=== PATIENT | female | born 1975 | race Caucasian/White ===

== ENCOUNTER 2024-12-22 10:00 | Outpatient (CLI) | payer BC, SELFPAY ==
--- OUTSIDE RECORDS SUMMARY | 2024-12-03 16:30 | XMS_ITS | Encounter Summary ---
Author Organization [facility] Address [address] [place], [place] [id number] Phone [email or web address] [email or web address] Care Team Providers Care Food Assembler Commissary Kitchen Name Role Phone Unavailable Primary Care Provider Unavailabl e Reason for Visit * Reason Comments Eye Exam Encounter Details Date Type Department Care Team (Late st Contact Info) Description 12/03/2024 4:30 PM EDT Office Visit [facility] [address] [place] [address] Vinny Ag, OD [address] [place] [address] Severe myopia of both eyes [...] evaluation with 20D <div id= MAIN_EXAM_REVIEWED ></div> Meryc was seen today for eye exam. Diagnoses and all orders for this visit: Severe myopia of both eyes (Primary) - DFE shows no signs of tears, holes, lattice, or RD OU - recommend annual eye exams to monitor retina - RTC for CL FU in 1-2 weeks Vinny Ag, KEILA documented in this encounter Plan of Treatment Upcoming Encounters Date Type Department Care Team (Late st Contact Info) Description 12/28/2024 10:00 AM EDT Occ Office Visit [facility] [address] [place] [address] Vinny Ag, OD [address] [place] [address] documented as of this encounter Visit Diagnoses Diagnosis Severe myopia of both eyes- Primary Myopia documented in this encounter
[2024-12-22 13:59] LABS: Alanine Aminotransferase 29 U/L (12-78); Albumin Level 4.6 g/dl (3.5-5.0); Albumin/Globulin Ratio 1.6 (1.1-1.8); Alkaline Phosphatase 85 U/L (38-126); Anion Gap 13.4 mEq/L (5-15); Aspartate Amino Transferase 29 U/L (14-36); Bilirubin,Total 0.8 mg/dl (0.2-1.3); Blood Urea Nitrogen 15 mg/dl (7-17); Calcium 10.1 mg/dl (8.4-10.2); Carbon Dioxide 28 mmol/L (22.0-30.0); Chloride 103 mmol/L (98-107); Cholesterol 167 mg/dl (140-200); Creatinine,Serum 0.80 mg/dl (0.52-1.04); Estimated Glomerular Filt Rate 76 ml/min (>60); GFR (African American) 92 ML/MIN (>60); Globulin 2.9 g/dL (1.3-3.2); Glucose 81 mg/dl (74-100); HDL Cholesterol 60 mg/dl (40-60); Potassium 4.4 mmoL/L (3.5-5.1); Sodium 140 mmol/L (136-145); Total Protein,Serum 7.5 g/dl (6.3-8.2); Triglycerides 100 mg/dl (30-150); Uric Acid 5.2 mg/dl (2.5-6.2)
[2024-12-22 14:10] LABS: Hemoglobin A1C 5.0 % (4.0-6.0)
[2024-12-22 14:15] LABS: 25-OH Vitamin D, Total 50.3 ng/mL (30-100)
[2024-12-22 14:19] LABS: Free T4 (Free Thyroxine) 1.03 ng/dl (0.78-2.19)
[2024-12-22 14:30] LABS: Thyroid Stimulating Hormone 4.83 uIU/mL (0.465-4.68)
[2024-12-23 08:13] LABS: FSH 53.8 mIU/mL (.); Insulin Level Total 10.4 uIU/mL (2.6-24.9); LH 29.2 mIU/mL (.); RA Latex Turbid. <10.0 IU/mL (<14.0); Triiodothyronine (T3) Free 3.6 pg/mL (2.0-4.4)
--- OUTSIDE RECORDS SUMMARY | 2024-12-23 11:51 | XMS_ITS | Clinical Summary ---
Author Organization [facility] Address [address] [place] [address] Phone CareEverywhereSuppor [email or web address] Care Team Providers Care Building Construction Superintendent Name Role Phone Unavailable Primary Care Provider Unavailabl e Medications No known medications Active Problems Problem Noted Date Diagnosed Date Other chronic allergic conjunctivitis Overview (10/30/2017): Routine general medical exam ination at a health care facility Overview (10/30/2017): Urinary frequency Overview (10/30/2017): Dermatophytosis Overview (10/30/2017): Allergic rhinitis due to other allergen Overview (10/30/2017): Encounters Date Type Department Care Team Description 12/03/2024 4:30 PM EDT Office Visit [facility] [address] [place] [address] Vinny Ag, OD Severe myopia of both eyes (Primary Dx) from Last 3 Months Immunizations Immunization Administration Dates Next Due COVID-19 (Pfizer [place] 12 yrs+) (CVX-208) 021,09/17/2020 Influenza, unspecified (CVX-88) 04/04/2012,04/15 Tdap (ADACEL BOOSTRIX) (CVX-115) 06/29/2013 Social History Tobacco Use Types Packs/Day Years [...] on file Sexual Orientation Not on file Last Filed Vital Signs Vital Sign Reading Time Taken Comments Blood Pressure 131/79 06/25/2016 9:11 AM MEMBERSHIP COUNSELOR Pulse 98 06/25/2016 9:11 AM MEMBERSHIP COUNSELOR Temperature - - Respiratory Rate - - Oxygen Saturation - - Inhaled Oxygen Concentration - - Weight 89.9 kg (198 lb 1.9 oz) 06/25/2016 9:11 A M MEMBERSHIP COUNSELOR Height 175.3 cm (5' 9 ) 06/25/2016 9:11 AM MEMBERSHIP COUNSELOR Body Mass Index 29.26 06/25/2016 9:11 AM MEMBERSHIP COUNSELOR Plan of Treatment Upcoming Encounters Date Type Department Care Team (Late st Contact Info) Description 12/28/2024 10:00 AM EDT Occ Office Visit [facility] [address] [place] [address] Vinny Ag, OD [address] [place] [address] Health Maintenance Due Date Last Done Comments Dental Cleaning/Exam 1975 HIV Screening 1975 Hepatitis C Screening 1975 Cervical Cancer Screening 1991 Annual Preventive Exam 10/10/1993 Hep B Infection Screening - Triple Screen 10/10/1993 Hepatitis B Immunization (1 of 3 - 19+ 3-dose series) 10/10/1994 Breast Cancer Screening 10/10/2005 Colorectal Cancer Screening 10/10/2005 Tetanus Diphtheria and Pertussis Immunization (3 - Td or Tdap) 06/29/2023 06/29/2013, 06/13/2013 Covid-19 Immunization ( - season) 2024 10/12/2020, 09/17/2020 Influenza Immunization (#1) 2025 10/0 01/2024, 03/15/2016, 03/24/2014, Additional history exists HIB Immunization Aged Out No longer e ligible based on patient's age to complete this topic HPV Immunization Aged Out No longer e ligible based on patient's age to complete this topic Hepatitis A Immunization Aged Out No longer eligible based on patient's age to complete this topic Pneumococcal: Ped (0 to 5 Yrs) and At-Risk Member (6 to 64 Yrs) Aged Out No longer eligible based on patient's age to complete this topic Polio Immunization Aged Out No longer eligible based on patient's age to complete this topic
--- OUTSIDE RECORDS SUMMARY | 2024-12-23 11:51 | XMS_ITS | Clinical Summary ---
Author Organization [facility] Address [facility] [place] [address] Phone Care Team Providers Care Marketing Financial Analyst Name Role Phone Unavailable Primary Care Provider Unavailabl e Allergies Active Allergy Reactions Criticality Noted Date Comments Adhesive Hives,Itching,Rash Medium 04/25/2011 Band aid only Bacitracin Zinc-Polymyxin B Itching Medium 06/09/2024 Levofloxacin Swelling 01/28/2023 Naproxen Hives,Nausea Only Medium 06/28/2020 Sulfa (Sulfonamide Antibiotics) Hives Medium 03/24/2018 Sulfamethoxazole-Trimeth oprim Hives Medium 08/16/2009 05/30/2017 - 04/22/2017 - 04/02/2016 - 09/26/2015 - 01/25/2015 - 09/29/2014 - 09/20/2014 - Medications beclomethasone dipropionate 40 mcg/actuation Nasl HFA Aerosol Inhaler Active MONTELUKAST SODIUM (SINGULAIR ORAL) Act ho norgestimate-eth inyl estradiol (ORTHO-CYCLEN) 0.25-35 mg-mcg Oral Tablet Take 1 Tablet by mouth daily. Active naproxen (NAPROSYN) 500 mg Oral TabletIndication s:TMJ arthritis Take 1 Tab by mouth 2 times daily (with meals). 60 Tab 2 7 Active atorvastatin (LIPITOR) 10 mg Oral Tablet 03/24/2018 Atorvastatin Oral PO 1.0 TABLET(S) daily 03/24/2018 active 8 Active cholecalciferol, vitamin D3, 25 mcg (1,000 unit) Oral Tablet Take 5,000 Units by mouth daily. Active Saccharomyces boulardii (FLORASTOR) 250 mg Oral Capsule Take 1 Capsule by mouth 2 times daily. 40 Capsule 5 Active Brompheniramine- Pseudoeph-DM 2-30-10 mg/5 mL Oral Syrup Take 5 mL by mouth every 4 hours as needed. 150 mL 5 Active predniSONE (DELTASONE) 20 mg Oral Tablet Take two tabs in AM with food x 3 days 6 Tablet 5 Active albuterol (PROVENTIL HFA;VENTOLIN HFA) 90 mcg/actuation Inhl HFA Aerosol Inhaler Inhale 2 Puffs into the lungs every 4 hours as needed. 1 Each 5 Active Active Problems Problem Noted Date Diagnosed Date Mixed hyperlipidemia 08/03/2016 Overweight (BMI 25.0-29.9) 08/03/2016 Iron deficiency anemia due to chronic blood loss 08/03/2016 TMJ arthritis 08/03/2016 Allergic rhinitis 08/11/2013 Seasonal allergies 08/11/2013 Vitamin D deficiency 08/11/2013 GERD (gastroesophageal reflux disease) 0 Resolved Problems Problem Noted Date Diagnosed Date Resolved Date Left ankle pain 12/17/2011 08/03/2016 Biliary colic 04/24/2011 08/11/2013 Calculous cholecystitis 05/05/201008/01 Palpitations 08/16/2009 08/11/2013 Immunizations Immunization Administration Dates Next Due DTaP 06/13/2013 H1N1, Unspecified Formulation 06/17/2009 Influenza Vaccine, Unspecified Formulation 03/15,03/24/2014,04/13/2013 Surgical History Surgery Date Site/Laterality Comments PELVIC LAPAROSCOPY 12/01/2009 D & C at same time BREAST BIOPSY 06/03/2006 left - benign ABCESS DRAINAGE 2000, 2002 rectal. CHOLECYSTECTOMY, LAPAROSCOPIC 05/22/2011 N/A LAPAROSCOPIC CHOLECYSTECTOMY; Surgeon: Blayne Mills MD; Location: [facility] MAIN OR; Service: General PARTIAL HYSTERECTOMY 06/03/2017 - 06/02/2018 Medical History Medical History Date Comments Seasonal allergies GERD (gastroesophageal reflux disease) Allergic rhinitis (spontaneous vaginal delivery) 1999 Vitamin D deficiency Family History Medical History Relation Name Comments High Cholesterol Father Hypertension Father Cancer Maternal Grandfather bladder Hypertension Mother Diabetes Paternal Aunt Cancer Paternal Grandfather pancrea tic Diabetes Paternal Grandmother Cancer Paternal Uncle 1 renal Cancer Paternal Uncle 2 brain, lymp akua Relation Name Status Comments Father Maternal Grandfather Mother Paternal Aunt Paternal Grandfather Paternal Grandmother Paternal Uncle 1 Paternal Uncle 2 Social History Tobacco Use Types Packs/Day Years Used Date Smoking Tobacco: Never Smokeless Tobacco: Never Tobacco Cessation:Counseling Given: Not Answered Alcohol Use Standard Drinks/Week Comments No 0 (1 standard drink = 0.6 oz pur e alcohol) Sexually Active Control Partners Comments Yes Male Comments No Sex and Gender Information Value Date Recorded Sex Assigned at Not on file Legal Sex Female 9:35 AM EDT Gender Identity Not on file Sexual Orientation Not on file Obstetrics History Last Filed Vital Signs Vital Sign Reading Time Taken Comments Blood Pressure 122/66 06/14/2024 2:59 PM EST Pulse 89 06/14/2024 2:59 PM EST Temperature 36.7 C (98.1 F) 06/14/2024 2:59 PM EST Respiratory Rate 18 06/14/2024 2:59 PM EST Oxygen Saturation 97% 06/14/2024 2:59 PM EST Inhaled Oxygen Concentration - - Weight 109.1 kg (240 lb 9.6 oz) 06/14/2024 2:59 PM EST Height 175.3 cm (5' 9 ) 06/14/2024 2:59 PM EST Body Mass Index 35.53 06/14/2024 2:59 PM EST Plan of Treatment Upcoming Encounters Date Type Department Care Team (Late st Contact Info) Description 04/16/2025 1:30 PM EST [facility] [address] [place] [address] Ya Parker, [facility] [address] [place] [address] Health Maintenance Due Date Last Done Comments Annual Wellness Exam 10/10/1978 Hepatitis B Vaccine (1 of 3 - 19+ 3-dose series) 10/10/1994 HPV/Pap Cotest 10/10/2005 Cervical Cancer Screening 01/14/2018 Pap Smear 01/14/2018 01/14/2015, 09/02, 08/11/2009 Breast Cancer Screening 09/06/2019 09/06/19 18, 09/05/2017, 01/16/2017, Additional history exists Cologuard 10/10/2020 Colon Cancer Screening 10/10/2020 Colonoscopy 10/10/2020 FIT 10/10/2020 Sigmoidoscopy 10/10/2020 Virtual Colonography 10/10/2020 DTaP/TDaP/Td (2 - Tdap) 06/13/2023 06/13/2013 COVID-19 Vaccine (2 - season) 2024 10/12/2020 Influenza Vaccine (#1) 2025 , 03/15/2016, 03/15/2016, Additional history exists Meningococcal B Vaccine Aged Out No l onger eligible based on patient's age to complete this topic Pneumococcal Vaccine 0-49 Aged Out No longer eligible based on patient's age to complete this topic Goals Goal Patient Goal Type Associated Problems Recent Progress Patient-Stated? Author Maintain a healthy diet, exercise regularly and maintain an ideal body weight General No Ceci Esparza RMA Procedures Procedure Name Priority Date/Time Associated Diagnosis Comments MM MAMMO DIGITAL MAGNOLIA DIAGN BILAT Routine 09/05/2017 2:03 PM EDT Breast density GUEST EXPERIENCE MANAGER CYTOLOGY REPORT Routine 09/24/2011 4 :24 AM EDT from Last 3 Months or Most Recently Relevant to Health Maintenance Results * MM MAMMO DIGITAL MAGNOLIA DIAGN BILAT (09/05/2017 2:03 PM EDT) Anatomical Region Laterality Modality Breast Bilateral Mammography 09/06/2017 6:08 AM EDT Impressions 09/09/2017 10:14 AM EDT : Benign finding ([id number]) ~ RECOMMENDATION: Routine screening mammogram in 1 year. ~ DISCLAIMER * Any patient with a palpable abnormality, unexplained by breast imaging, should be managed on clinical basis by the attending physician. * Breast imaging has a false negative rate of 15%. * The patient was notified by mail of the results of this examination. *The patient's information was entered into a reminder system with a target due date for the next mammogram. Narrative 09/09/2017 10:14 AM EDT Procedure:MM MAMMO DIGITAL MAGNOLIA DIAGN BILAT ~ Reason for exam: follow-up at short interval from prior study. ~ MM MAMMO DIGITAL MAGNOLIA DIAGN BILAT Bilateral CC and MLO view(s) were taken. Prior study comparison: January 16, 2017, MM MAMMO DIGITAL MAGNOLIA DIAGN LEFT performed at [facility]. July 12, 2016, bilateral MM MOBILE DIGITAL MAGNOLIA SCREEN BILAT performed at [facility]. The breast tissue is heterogeneously dense. This may lower the sensitivity of mammography. Stable, benign less than 1 cm. oval nodularity axillary tail left breast. No suspicious calcifications. Mammogram of the contralateral breast reveals no evidence of malignancy. Compared to prior studies the most recent being 01-16-17 ~ Columba Nieto MD IMG MAMMOGRAPHY ORDERABLES Final Result * GUEST EXPERIENCE MANAGER CYTOLOGY REPORT (09/24/2011 4:24 AM EDT) Senior Management Consultant Cytology Report PATIENT NAME:MERCY BORJA Senior Management Consultant Cytology Report Accession Number Collected Date/Time Received Date/Time [id number] 09/24/11 04:24 EDT 09/25/11 04:24 EDT GY Specimen Source Specimen Vag/Cerv/Endocx?: Cervical/Endocervi svetlana Statement of Adequacy Satisfactory for Evaluation. Transformation Zone Present. Diagnosis NEGATIVE FOR INTRAEPITHELIAL LESION OR MALIGNANCY. Comment The Pap Smear is a screening test that aids in the detection of cervical cancer and cancer precursors. Both false positive and false negative results can occur. The test should be used at regular intervals, and positive results should be confirmed before definitive therapy. Processed using the ThinPrep Engraver Set Up Operator automated cytology screening device ([employer]). Atmospheric Scientist: BRITTANY 09/27/2011 Completed by: TEDDY Thomas (Electronically signed by) 09/27/2011 [facility] Laboratory [facility] 09/24/2011 4:24 AM EDT us Jesus Alberto Sanchez MD PATHOLOGY ORDERABLES Final Resu lt [facility] [address] [place] [address] from Last 3 Months or Most Recently Relevant to Health Maintenance Insurance ANTHEM PPO ANTHEM PPO ANTHEM PPO
[2024-12-23 14:12] LABS: Antinuclear Antibodies, IFA Negative (.)
[2024-12-25 04:01] LABS: Testosterone,Free 0.5 pg/mL (0.0-4.2)
== END 2024-12-22 23:59 | disposition home or self-care (01) ==
LOC: LAB.DROPOF 12-23 11:49
PROVIDERS: PCP Nurse Practitioner Family; Visit Provider Nurse Practitioner Family
DX: E78.5 Hyperlipidemia, unspecified (principal); R23.2 Flushing; M25.50 Pain in unspecified joint; R63.5 Abnormal weight gain; E55.9 Vitamin D deficiency, unspecified
CPT/HCPCS: 80053; 80061; 82306; 82670; 83001; 83002; 83036; 83525; 84144; 84402; 84439; 84443; 84481; 84550; 85651; 86038; 86431

== ENCOUNTER 2024-12-28 14:45 | Outpatient (CLI) | payer BC, SELFPAY ==
--- OUTSIDE RECORDS SUMMARY | 2024-12-03 16:30 | XMS_ITS | Encounter Summary ---
Author Organization [facility] Address [address] [place], [place] [address] Phone CareEverywhereSuppor [email or web address] Care Team Providers Care Rn Oncology Research Name Role Phone Unavailable Primary Care Provider Unavailabl e Reason for Visit * Reason Comments Eye Exam Encounter Details Date Type Department Care Team (Late st Contact Info) Description 12/03/2024 4:30 PM EDT Office Visit [facility] [address] [place] [address] Vinny Ag, OD [address] [place] [address] Severe myopia of both eyes [...]
--- NOTE | 2024-12-28 14:45 | US_ITS ---
FINAL REPORT TECHNIQUE: Sonographic images of the thyroid gland were obtained in the longitudinal and transverse planes. CLINICAL HISTORY: thyroid nodule FINDINGS: The right lobe measures 1.2 x 3.7 x 1.6 cm. It is diffusely heterogeneous and hyperemic. There is a 5 mm colloid cyst. The left lobe measures 1.4 x 4.0 x 1.6 cm. It is diffusely heterogeneous and hyperemic. There are no cystic or solid nodules. The isthmus measures 5 mm. IMPRESSION: 1. No concerning nodule. 2. Heterogeneous thyroid with hyperemia suggesting thyroiditis. Reviewed, Interpreted and Dictated by Marquita Wells MD Transcribed by DIONNA Hebert Authenticated and [facility]
--- OUTSIDE RECORDS SUMMARY | 2024-12-28 14:47 | XMS_ITS | Clinical Summary ---
Author Organization [facility] Address [address] [facility] [place] [address] Phone Care Team Providers Care Research Compliance Specialist Name Role Phone Unavailable Primary Care Provider [...] LAPAROSCOPIC CHOLECYSTECTOMY; Surgeon: Blayne Mills MD; Location: [facility] MAIN OR; Service: General PARTIAL HYSTERECTOMY 06/03/2017 [...] PM EST [facility] [address] [place] [address] Ya Parker, [facility] [address] [place] [address] Health Maintenance Due Date Last [...] Routine 09/05/2017 2:03 PM EDT Breast density ENVIRONMENTAL COMPLIANCE ENGINEER CYTOLOGY REPORT Routine 09/24/2011 4 :24 AM EDT from Last 3 Months or Most Recently Relevant to Health Maintenance Results * MM MAMMO DIGITAL MAGNOLIA DIAGN BILAT (09/05/2017 2:03 PM EDT) Anatomical Region Laterality Modality Breast Bilateral Mammography 09/06/2017 6:08 AM EDT Impressions 09/09/2017 10:14 AM EDT : Benign finding ([id number]) ~ RECOMMENDATION: Routine screening mammogram in 1 [...] MAMMO DIGITAL MAGNOLIA DIAGN LEFT performed at [facility]. July 12, 2016, bilateral MM MOBILE DIGITAL MAGNOLIA SCREEN BILAT performed at [facility]. The breast tissue is heterogeneously dense. This may lower the sensitivity of mammography. Stable, benign less than 1 cm. oval nodularity axillary tail left breast. No suspicious calcifications. Mammogram of the contralateral breast reveals no evidence of malignancy. Compared to prior studies the most recent being 01-16-17 ~ Columba Nieto MD IMG MAMMOGRAPHY ORDERABLES Final Result * ENVIRONMENTAL COMPLIANCE ENGINEER CYTOLOGY REPORT (09/24/2011 4:24 AM EDT) Senior Packaging Engineer Cytology Report PATIENT NAME:MERCY BORJA Senior Packaging Engineer Cytology Report Accession Number Collected Date/Time Received Date/Time [id number] 09/24/11 04:24 EDT 09/25/11 04:24 EDT GY [...] before definitive therapy. Processed using the ThinPrep Boom Conveyor Operator automated cytology screening device ([employer] Boardmarker: BRITTANY 09/27/2011 Completed by: TEDDY Thomas (Electronically signed by) 09/27/[address] [facility] Laboratory [facility] 09/24/2011 4:24 AM EDT us Jesus Alberto Sanchez MD PATHOLOGY ORDERABLES Final Resu lt [facility] [address] [place] [address] from Last 3 Months or Most Recently Relevant to Health Maintenance Insurance ANTHEM PPO ANTHEM PPO ANTHEM PPO
--- OUTSIDE RECORDS SUMMARY | 2024-12-28 14:47 | XMS_ITS | Clinical Summary ---
Author Organization [facility] Address [address] [place] [address] Phone [email or web address] [email or web address] Care Team Providers Care Director Of Market Research Name Role Phone Unavailable Primary Care [...] Description 12/03/2024 4:30 PM EDT Office Visit [facility] [address] [place] [address] Vinny Ag, OD Severe myopia of both eyes (Primary Dx) from Last 3 Months Immunizations Immunization Administration Dates Next Due COVID-19 (Pfizer [place] 12 yrs+) (CVX-208) 021,09/17/2020 Influenza, unspecified (CVX-88) [...] Comments Blood Pressure 131/79 06/25/2016 9:11 AM BARTACKER Pulse 98 06/25/2016 9:11 AM BARTACKER Temperature - - Respiratory Rate - - Oxygen Saturation - - Inhaled Oxygen Concentration - - Weight 89.9 kg (198 lb 1.9 oz) 06/25/2016 9:11 A M BARTACKER Height 175.3 cm (5' 9 ) 06/25/2016 9:11 AM BARTACKER Body Mass Index 29.26 06/25/2016 9:11 AM BARTACKER Plan of Treatment Health Maintenance Due Date Last Done Comments [...] season) 2024 10/12/2020, 09/17/2020 Influenza Immunization (#1) 02/01/202501/2024, 03/15/2016, 03/24/2014, Additional history exists HIB Immunization [...]
== END 2024-12-28 23:59 | disposition home or self-care (01) ==
LOC: RAD 14:46
PROVIDERS: PCP Nurse Practitioner Family; Visit Provider Nurse Practitioner Family
DX: E04.1 Nontoxic single thyroid nodule (principal)
CPT/HCPCS: 76536

== ENCOUNTER 2025-01-01 16:58 | Outpatient (CLI) | payer BC, SELFPAY ==
--- OUTSIDE RECORDS SUMMARY | 2024-12-03 16:30 | XMS_ITS | Encounter Summary ---
Author Organization [facility] Address [address] [place], [place] [id number] Phone [email or web address] [email or web address] Care Team Providers Care Printing Manager Name Role Phone Unavailable Primary Care Provider Unavailabl e Reason for Visit * Reason Comments Eye Exam Encounter Details Date Type Department Care Team (Late st Contact Info) Description 12/03/2024 4:30 PM EDT Office Visit [facility] [address] [place] [address] Vinny Ag, OD [address] [place] [address] Severe myopia of both eyes (Primary Dx) Social History Tobacco Use Types Packs/Day Years Used Date Smoking Tobacco: Never Assessed Intimate Partner Violence Answer Date R ecorded Insults You Not on file 09/13/2020 Threatens You Not on file 09/13/2020 Screams at You Not on file 09/13/2020 Physically Hurt Not on file 09/13/2020 Intimate Partner Violence Score Not on file 09/13/2020 Stress Answer Date Recorded Stress in your Life Not on file 04/06/2024 Dealing with Stress 3 04/06/2024 Comments Unknown Sex and Gender Information Value Date Recorded Sex Assigned at Not on file Legal Sex Female 7:39 AM CDT Gender Identity Not on file Sexual Orientation Not on file documented as of this encounter Progress Notes * Vinny Ag, KEILA - 12/03/2024 4:30 PM EDT Subjective: Mercy Borja is a 49 y.o. female. Chief Complaint Eye Exam HPI DFE - completion of eye exam. Last edited by Vinny Ag, OD on 12/03/2024 9:06 PM. ROS Positive for: Eyes (high myopia) Negative for: Constitutional, Gastrointestinal, Neurological, Skin, Genitourinary, Musculoskeletal,HENT, Endocrine, Cardiovascular, Respiratory, Psychiatric, Allergic/Imm, Heme/Lymph Last edited by Vinny Ag, KEILA on 12/03/2024 9:06 PM. Visual Acuity Visual Acuity (Snellen - Linear) Right Left Dist cc 20/20 20/20 Correction: Contacts Pupils Pupils Pupils Dark Light APD Right PERRL 7 3 None Left PERRL 7 3 None Confrontational Visual Salcedo Visual Salcedo Left Right Full Full Wearing Rx Wearing Rx Sphere Add Right -11.50 +1.00 Left -11.50 +1.00 Type: PAL Eyeglass Final Rx Eyeglass Final Rx Sphere Add Right -11.50 +1.00 Left -11.50 +1.00 Type: PAL Expiration Date: 12/03/2025 Contact Lens Current Rx Current Contact Lens Rx Brand Base Curve Sphere Add Right Acuvue Oasys 1 Day Max Multifocal 8.4 -10.00 Low Left Acuvue Oasys 1 Day Max Multifocal 8.4 -10.00 Low Dilation Dilation Both eyes: 0.5% tropicamide @ 4:51 PM Main Ophthalmology Exam External Exam Right Left External Normal Normal Slit Lamp Exam Right Left Lids/Lashes Normal Normal Conjunctiva/Sclera White and quiet White and quiet Cornea Clear Clear Anterior Chamber Deep and quiet Deep and quiet Iris Round and reactive Round and reactive Lens Clear Clear Vitreous Normal Normal Fundus Exam Right Left Disc Normal Normal C/D Ratio 0.3 0.3 Macula Flat and Intact Flat and Intact Vessels Normal Normal Periphery Normal Normal Slit lamp exam with superfield fundus lens. BIO evaluation with 20D <div id= MAIN_EXAM_REVIEWED ></div> Mercy was seen today for eye exam. Diagnoses and all orders for this visit: Severe myopia of both eyes (Primary) - DFE shows no signs of tears, holes, lattice, or RD OU - recommend annual eye exams to monitor retina - RTC for CL FU in 1-2 weeks Vinny Ag, KEILA documented in this encounter Plan of Treatment Not on file documented as of this encounter Visit Diagnoses Diagnosis Severe myopia of both eyes- Primary Myopia documented in this encounter
--- OUTSIDE RECORDS SUMMARY | 2025-01-02 10:10 | XMS_ITS | Clinical Summary ---
Author Organization [facility] Address [address] [place] [address] Phone [email or web address] [email or web address] Care Team Providers Care Commodity Loan Clerk Name Role Phone Unavailable Primary Care Provider [...] Description 12/03/2024 4:30 PM EDT Office Visit [facility] [address] [place] [address] Vinny Ag, OD Severe myopia of both eyes (Primary Dx) from Last 3 Months Immunizations Immunization Administration Dates Next Due COVID-19 (Pfizer [place] 12 yrs+) (CVX-208) 021,09/17/2020 Influenza, unspecified (CVX-88) [...] Comments Blood Pressure 131/79 06/25/2016 9:11 AM TELEPHONE SOLICITOR Pulse 98 06/25/2016 9:11 AM TELEPHONE SOLICITOR Temperature - - Respiratory Rate - - Oxygen Saturation - - Inhaled Oxygen Concentration - - Weight 89.9 kg (198 lb 1.9 oz) 06/25/2016 9:11 A M TELEPHONE SOLICITOR Height 175.3 cm (5' 9 ) 06/25/2016 9:11 AM TELEPHONE SOLICITOR Body Mass Index 29.26 06/25/2016 9:11 AM TELEPHONE SOLICITOR Plan of Treatment Health Maintenance Due Date [...]
--- OUTSIDE RECORDS SUMMARY | 2025-01-02 10:11 | XMS_ITS | Clinical Summary ---
Author Organization [facility] Address [facility] [place] [address] Phone Care Team Providers Care Director Of Photography Name Role Phone Unavailable Primary Care Provider [...] LAPAROSCOPIC CHOLECYSTECTOMY; Surgeon: Blayne Mills MD; Location: [facility] MAIN OR; Service: General PARTIAL HYSTERECTOMY 06/03/2017 [...] PM EST Office Visit [facility] [address] [place] [address] Ya Parker, [facility] [address] [place] [address] Health Maintenance Due Date Last [...] Routine 09/05/2017 2:03 PM EDT Breast density ORTHOPEDICS PEDIATRIC PHYSICIAN CYTOLOGY REPORT Routine 09/24/2011 4 :24 AM EDT from Last 3 Months or Most Recently Relevant to Health Maintenance Results * MM MAMMO DIGITAL MAGNOLIA DIAGN BILAT (09/05/2017 2:03 PM EDT) Anatomical Region Laterality Modality Breast Bilateral Mammography 09/06/2017 6:08 AM EDT Impressions 09/09/2017 10:14 AM EDT : Benign finding ([id number]) ~ RECOMMENDATION: Routine screening mammogram in 1 [...] MAMMO DIGITAL MAGNOLIA DIAGN LEFT performed at [facility]. July 12, 2016, bilateral MM MOBILE DIGITAL MAGNOLIA SCREEN BILAT performed at [facility]. The breast tissue is heterogeneously dense. This may lower the sensitivity of mammography. Stable, benign less than 1 cm. oval nodularity axillary tail left breast. No suspicious calcifications. Mammogram of the contralateral breast reveals no evidence of malignancy. Compared to prior studies the most recent being 01-16-17 ~ Columba Nieto MD IMG MAMMOGRAPHY ORDERABLES Final Result * ORTHOPEDICS PEDIATRIC PHYSICIAN CYTOLOGY REPORT (09/24/2011 4:24 AM EDT) Dry Heat Cabinet Attendant Cytology Report PATIENT NAME:MERCY BORJA Dry Heat Cabinet Attendant Cytology Report Accession Number Collected Date/Time Received Date/Time [id number] 09/24/11 04:24 EDT 09/25/11 04:24 EDT GY [...] before definitive therapy. Processed using the [employer] automated cytology screening device ([employer]). Field Services Director: BRITTANY 09/27/2011 Completed by: TEDDY Thomas (Electronically signed by) 09/27/2011 [facility] 09/24/2011 4:24 AM EDT us Jesus Alberto Sanchez MD PATHOLOGY ORDERABLES Final Resu lt [facility] [address] [place] [address] from Last 3 Months or Most Recently Relevant to Health Maintenance Insurance ANTHEM PPO ANTHEM PPO ANTHEM PPO
== END 2025-01-01 23:59 | disposition home or self-care (01) ==
LOC: LAB.DROPOF 01-02 10:09
PROVIDERS: PCP Nurse Practitioner Family; Visit Provider Nurse Practitioner Family
DX: E04.1 Nontoxic single thyroid nodule (principal)
CPT/HCPCS: 86376; 86800

== ENCOUNTER 2025-04-16 09:23 | Outpatient (CLI) | payer BC, SELFPAY ==
[2025-04-16 14:34] LABS: Alanine Aminotransferase 25 U/L (12-78); Albumin Level 4.2 g/dl (3.5-5.0); Albumin/Globulin Ratio 1.4 (1.1-1.8); Alkaline Phosphatase 84 U/L (38-126); Anion Gap 13.5 mEq/L (5-15); Aspartate Amino Transferase 26 U/L (14-36); Bilirubin,Total 0.5 mg/dl (0.2-1.3); Blood Urea Nitrogen 13 mg/dl (7-17); Calcium 9.3 mg/dl (8.4-10.2); Carbon Dioxide 25 mmol/L (22.0-30.0); Chloride 103 mmol/L (98-107); Cholesterol 172 mg/dl (140-200); Creatinine,Serum 0.70 mg/dl (0.52-1.04); Estimated Glomerular Filt Rate 89 ml/min (>60); GFR (African American) 108 ML/MIN (>60); Globulin 3.0 g/dL (1.3-3.2); Glucose 76 mg/dl (74-100); HDL Cholesterol 65 mg/dl (40-60); Potassium 4.5 mmoL/L (3.5-5.1); Sodium 137 mmol/L (136-145); Total Protein,Serum 7.2 g/dl (6.3-8.2); Triglycerides 100 mg/dl (30-150)
[2025-04-16 14:51] LABS: Free T4 (Free Thyroxine) 1.14 ng/dl (0.78-2.19)
[2025-04-16 14:53] LABS: T4 (Thyroxine) 10.8 ug/dl (5.53-11.0)
[2025-04-16 15:07] LABS: Thyroid Stimulating Hormone 2.09 uIU/mL (0.465-4.68)
[2025-04-20 02:37] LABS: Triiodothyronine (T3) Free 3.3 pg/mL (2.0-4.4)
[2025-04-20 11:13] LABS: Testosterone,Free 0.6 pg/mL (0.0-4.2)
== END 2025-04-16 23:59 | disposition home or self-care (01) ==
LOC: LAB.DROPOF 04-17 09:23
PROVIDERS: PCP Nurse Practitioner Family; Visit Provider Nurse Practitioner Family
DX: E78.5 Hyperlipidemia, unspecified (principal); E06.3 Autoimmune thyroiditis; R23.2 Flushing; E04.1 Nontoxic single thyroid nodule; L30.1 Dyshidrosis [pompholyx]
CPT/HCPCS: 80053; 80061; 82670; 84144; 84402; 84436; 84439; 84443; 84481; 84630